=== PATIENT | male | born 1975 | race Caucasian/White ===

== ENCOUNTER → 2018-02-03 | Day surgery (SDC) | payer BC ==
[~2018-02-03] MED LIST: ACETAMINOPHEN 1000 MG/100 ML 100 ML IV ONE; ACETAMINOPHEN 1000 MG/100 ML IV ONE; CEFAZOLIN SOD 1 GM VIAL ONE; DEXAMETHASONE SOD PHOS INJ 4 MG/ML VIAL ONE; FENTANYL CITRATE/PF 100MCG/2 ML INJ ONE; LIDOCAINE HCL 2% LOCAL INJ 5 ML SDV VIAL INJ ONE; MIDAZOLAM HCL 2 MG/2 ML VIAL ONE; ONDANSETRON HCL INJ 2 MG/ML VIAL ONE; PROPOFOL IV EMULSION 10 MG/ML 20 ML VIAL ONE; SEVOFLURANE INHAL SOLN 250 ML PEN BTL ONE
--- OUTSIDE RECORDS SUMMARY | 2018-02-03 07:53 | XMS REPORT ---
Author Author [facility] Address Unknown Phone Unavailable Care Team Providers Care Logging Worker Name Role Phone Jules Le Unavailable Unavailable Problems This patient has no known problems. Allergies, Adverse Reactions, Alerts This patient has no known allergies or adverse reactions. Medications This patient has no known medications. Results Test Description Test Time Test Comments Text Results Atomic Results Result Comments [place] count 2017-01-26 13:04:00 >100,000 CFU/ML.^>100,000 CFU/ML.^L Urine culture 2017-01-26 13:04:00 Urine culture (test iacs=275-6) MIXED RONI. Microscopic examination of [id number] 22:03:00* Test Item Value Reference Range Comments Urine WBC (test code=UWBC) 5-10 <5 Urine sediment erythrocyte count by microscopy (number/high power field) (test opui=65198-6) NONE SEEN NONE SEEN Bacteria detection in urine sediment by light microscopy (test zrec=40622-9) < 20 NONE SEEN Sqamous Epithelial (test code=SQEP) <5 NONE SEEN Urinalysis with reflex to culture (test elzw=56652-0) NOT NEEDED Culture was ordered previously. Mucus detection in urine sediment by light microscopy (test ltmt=3701-2) HEAVY NONE SEEN Comment Bed:23Urine test at point of [id number] 21:54:00* Test Item Value Reference Range Comments Urine Test (test code=UPG) NEG NEG Urine specific gravity measurement (test asvn=7201-5) >1.030 1.005-1.030 Tested by: oe BLOOD: NEG GLUCOSE: NEG KETONES: NEG LEUKOCYTES: TRACE NITRITE: NEG PH: 5.5 PROTEIN: TRACE oe NEG oe NEG NEG NEG TRACE NEG 5.5 TRACE Y > 1.030Urine dipstick testing at [id number] 21:54:00* Test Item Value Reference Range Comments Urine glucose detection (test lxas=6773-5) Negative NEG Urine Ketones (test code=UKET) NEGATIVE NEG Urine blood detection (test gnkm=25636-3) Negative NEG Urine pH (test fesw=9683-1) 5.5 5.0-7.0 Urinalysis with microscopy (test weec=50119-2) TRACE NEG Urine nitrate measurement (test iyxj=10380-5) NEGATIVE NEG Urine Leukocyte Esterase (test code=UESTR) TRACE NEG Tested by: oe BLOOD: NEG GLUCOSE: NEG KETONES: NEG LEUKOCYTES: TRACE NITRITE: NEG PH: 5.5 PROTEIN: TRACE oe NEG oe NEG NEG NEG TRACE NEG 5.5 TRACE Y >1.030
--- NOTE | 2018-02-03 13:02 | Operative Report ---
DATE OF PROCEDURE: February 03, 2018 MH TEACHER: Balaji Zeng PA-C The patient was brought to the operating room for induction of anesthesia. Throughout this case, my PA's assistance was necessary for retraction of soft tissue and positioning of the extremity. This allows for efficient and technically successful execution of the operation and is considered medically necessary. PREOPERATIVE DIAGNOSIS: Medial meniscal tear, left knee. POSTOPERATIVE DIAGNOSIS: Medial meniscal tear, left knee. PROCEDURE: Left knee arthroscopy, partial medial meniscectomy. INDICATIONS FOR PROCEDURE: The patient is a 43-year-old gentleman who has clinic signs and symptoms consistent with a medial meniscal tear in his left knee. He has failed conservative management and would like to proceed with a left knee arthroscopy. The risks and benefits have been discussed. He states he understands and wishes to proceed. DESCRIPTION OF PROCEDURE: The patient was brought to the operating room and placed under general anesthetic. His left lower extremity was prepped and draped in a sterile manner. A preoperative time out was performed. A tourniquet on the upper thigh had been inflated to 300 mmHg. Standard arthroscopy portals were established. The knee was insufflated with sterile saline and systematically inspected. The patellofemoral groove, cruciate ligaments and lateral compartment were all unremarkable. The medial meniscus demonstrated a complex tear of the posterior horn of the meniscus. This was photographed and probed. This was debrided back to a stable margin using a combination of biting forceps and a mechanical shaver. Before and after photographs were taken. The knee was thoroughly irrigated. The medial and lateral gutters were inspected and noted to be free of any loose bodies. The arthroscopic instruments were removed, and the portal incisions were closed with nylon stitches. A sterile bandage was applied. The patient was extubated and transported to the recovery room in stable condition. Job#: [id number]
== END | disposition home or self-care (01) ==
LOC: OR 07:52
PROVIDERS: ATTEND Specialist
DX: S83.232A Complex tear of medial meniscus, current injury, left knee, initial encounter (principal); M17.12 Unilateral primary osteoarthritis, left knee; X58.XXXA Exposure to other specified factors, initial encounter; Z01.810 Encounter for preprocedural cardiovascular examination; Z68.33 Body mass index [BMI] 33.0-33.9, adult
CPT/HCPCS: 29881; 93005; J0690; J1100; J2001; J2250; J2405

== ENCOUNTER → 2018-03-24 | Day surgery (SDC) | payer BC ==
[~2018-03-24] MED LIST changes: -ACETAMINOPHEN 1000 MG/100 ML IV ONE; +KETOROLAC TROMETHAMINE 30 MG/ML VIAL ONE
--- NOTE | 2018-03-24 09:05 | Operative Report ---
DATE OF PROCEDURE: March 24, 2018 OIL BURNER SERVICER AND INSTALLER: Balaji Zeng PA-C The patient was brought to the operating room for induction of anesthesia. Throughout this case, my PA's assistance was necessary for retraction of soft tissue and positioning of the extremity. This allows for efficient and technically successful execution of the operation and is considered medically necessary. PREOPERATIVE DIAGNOSIS: Right knee medial meniscal tear. POSTOPERATIVE DIAGNOSIS: Right knee medial meniscal tear. PROCEDURES 1. Right knee arthroscopy. 2. Partial medial meniscectomy. INDICATIONS: The patient is a 43-year-old gentleman who has clinic signs and symptoms consistent with a right knee medial meniscal tear. He has failed conservative management and would like to proceed with arthroscopy. The risks and benefits have been discussed. He states he understands and wishes to proceed. He recently had a similar situation in the left knee that responded nicely to left knee arthroscopy. DESCRIPTION OF PROCEDURE: The patient was brought to the operating room and placed under general anesthetic. His right lower extremity was prepped and draped in a sterile manner. He received preoperative antibiotics in the holding area. A preoperative time out was performed. The extremity had been exsanguinated and a proximal tourniquet was inflated to 300 mmHg. Standard arthroscopy portals were established. The knee was insufflated with sterile saline and systematically inspected. The patellofemoral groove was unremarkable. 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 Unstable margins were gently debrided. There was a complex tear of the posterior horn of the medial meniscus. This was photographed and then debrided back to a stable margin using a combination of biting forceps and mechanical shaver. The meniscus was debrided back to a hook stable rim. The articular surfaces were otherwise well preserved. The cruciate ligaments and lateral compartment were normal. The knee was thoroughly irrigated with sterile saline. The arthroscopic instruments were removed. The portal incisions were closed with nylon stitches. A sterile bandage was applied. The patient was extubated and transported to the recovery room in stable condition. There was no blood loss. All needle and sponge counts were correct. Job#: [id number]
== END | disposition home or self-care (01) ==
LOC: OR 06:18
PROVIDERS: ATTEND Specialist
DX: S83.231A Complex tear of medial meniscus, current injury, right knee, initial encounter (principal); M94.261 Chondromalacia, right knee; Z91.048 Other nonmedicinal substance allergy status; X58.XXXA Exposure to other specified factors, initial encounter; Z68.33 Body mass index [BMI] 33.0-33.9, adult
CPT/HCPCS: 29881; J0690; J1100; J1885; J2001; J2250; J2405